=== PATIENT | female | born 1965 | race Caucasian/White ===

== ENCOUNTER 2017-05-17 22:51 | Emergency (ER) | payer OTHER ==
[~2017-05-17 22:51] MED LIST: CLINDAMYCIN HC300 MG PO; LAC PO
[2017-05-18 03:41] VITALS: BP 113/75
== END 2017-05-18 03:41 | disposition home or self-care (01) ==
LOC: ED 22:51
DX: R13.10 Dysphagia, unspecified (principal); Z88.5 Allergy status to narcotic agent
CPT/HCPCS: J1100

== ENCOUNTER 2018-08-14 19:48 | Emergency (ER) | payer OTHER ==
[~2018-08-14] VITALS: Ht 157.5 cm; Wt 76.2 kg
[2018-08-14 20:07] VITALS: Ht 157.5 cm; Wt 76.2 kg
[2018-08-14 21:45] VITALS: BP 129/71
== END 2018-08-14 21:45 | disposition home or self-care (01) ==
LOC: ED 19:48
DX: J02.9 Acute pharyngitis, unspecified (principal); Z98.890 Other specified postprocedural states; Z88.5 Allergy status to narcotic agent
CPT/HCPCS: J1885

== ENCOUNTER 2019-01-12 08:16 | Emergency (ER) | payer OTHER ==
[~2019-01-12] VITALS: Ht 160 cm; Wt 74.0 kg
[2019-01-12 09:01] VITALS: BP 111/73
== END 2019-01-12 09:01 | disposition home or self-care (01) ==
LOC: ED 08:16
DX: L50.9 Urticaria, unspecified (principal); Z88.5 Allergy status to narcotic agent; Z98.890 Other specified postprocedural states

== ENCOUNTER 2019-05-18 06:07 | Emergency (ER) | payer OTHER ==
[~2019-05-18] VITALS: Ht 160 cm; Wt 75.3 kg
[2019-05-18 06:13] VITALS: Ht 160 cm; Wt 75.3 kg
[2019-05-18 07:11] LABS: BASOPHIL % 0.7 % (0-2); PLATELET COUNT 248 x10^3mcL (130-400)
[2019-05-18 07:14] LABS: RED CELL DISTRIBUTION WIDTH 14.8 % (11.5-14.5)
[2019-05-18 07:31] LABS: CALCIUM 9.3 mg/dL (8.5-10.1); CHLORIDE SERUM 105 mmol/L (98-107); CREATININE SERUM 0.7 mg/dL (0.6-1.0); GFR1 > 60 mL/min; GLUCOSE SERUM 184 mg/dL (74-106); POTASSIUM SERUM 3.8 mmol/L (3.5-5.1); SODIUM SERUM 140 mmol/L (136-145)
[2019-05-18 07:36] LABS: ALBUMIN 3.5 g/dL (3.4-5.0); ALKALINE PHOSPHATASE 134 U/L (46-116); ALT/SGPT 211 U/L (14-59); AST/SGOT 89 U/L (15-37); BILIRUBIN TOTAL 0.4 mg/dL (0.20-1.00); TOTAL PROTEIN, SERUM 6.9 g/dL (6.4-8.2)
[2019-05-18 08:00] VITALS: BP 135/87
== END 2019-05-18 08:30 | disposition home or self-care (01) ==
LOC: ED 06:07
PROVIDERS: Emergency Medicine
DX: M54.16 Radiculopathy, lumbar region (principal); K76.0 Fatty (change of) liver, not elsewhere classified; Z88.5 Allergy status to narcotic agent; Z98.890 Other specified postprocedural states
CPT/HCPCS: 36415; J1885

== ENCOUNTER 2019-11-27 06:30 | Emergency (ER) | payer OTHER ==
[~2019-11-27] VITALS: Ht 154.9 cm; Wt 75.8 kg
[2019-11-27 06:38] VITALS: Ht 154.9 cm; Wt 75.8 kg
[2019-11-27 07:48] LABS: BASOPHIL % 0.1 % (0-2); PLATELET COUNT 227 x10^3mcL (130-400); RED CELL DISTRIBUTION WIDTH 13.4 % (11.5-14.5)
[2019-11-27 07:49] LABS: CALCIUM 8.7 mg/dL (8.5-10.1); CHLORIDE SERUM 105 mmol/L (98-107); CREATININE SERUM 0.7 mg/dL (0.6-1.0); GFR1 > 60 mL/min; GLUCOSE SERUM 154 mg/dL (74-106); POTASSIUM SERUM 3.5 mmol/L (3.5-5.1); SODIUM SERUM 139 mmol/L (136-145)
[2019-11-27 07:56] LABS: ALBUMIN 3.5 g/dL (3.4-5.0); ALKALINE PHOSPHATASE 110 U/L (46-116); ALT/SGPT 86 U/L (14-59); AST/SGOT 49 U/L (15-37); BILIRUBIN TOTAL 0.4 mg/dL (0.20-1.00); LIPASE 183 IU/L (73-393); TOTAL PROTEIN, SERUM 7.3 g/dL (6.4-8.2)
[2019-11-27 10:00] LABS: UA SPECIFIC GRAVITY >1.030 (1.005-1.035); microscopic required? YES; urine erythrocyte 3+ (NEGATIVE)
[2019-11-27 10:18] VITALS: BP 124/72
== END 2019-11-27 10:18 | disposition home or self-care (01) ==
LOC: ED 06:30
PROVIDERS: Emergency Medicine
DX: M79.10 Myalgia, unspecified site (principal); R19.7 Diarrhea, unspecified; Z98.890 Other specified postprocedural states; Z88.5 Allergy status to narcotic agent
CPT/HCPCS: 87804; J7030; Q0092